=== PATIENT | female | born 1950 | race Caucasian/White ===

== ENCOUNTER 2016-06-09 07:51 | Day surgery (SDC) | payer OTHER ==
--- NOTE | ~2016-06-09 | OP ---
Record Of Operation [facility] [address] [place]. [address] NAME: JEANNIE WHEAT : 54 STATUS : REG [facility]#: [id number] AGE: 66 ADM/REG DATE : 06/09/16 MR#: [id number] REPORT SERV DATE: 06/09/16 DICTATED BY: TIFFANIE MICHEL DATE: 06/09/16 REPORT STATUS : Draft TRANSCRIBED BY: LAURA DATE: 06/09/16 DATE OF PROCEDURE: 06/09/2016 PREOPERATIVE DIAGNOSES: 1. History of left breast cancer, status post chemotherapy. 2. Indwelling right chest wall port. POSTOPERATIVE DIAGNOSIS: History of left breast cancer, status post chemotherapy. PROCEDURE: Removal of right chest wall venous port. INDICATION FOR THE PROCEDURE: Ms Wheat is a very healthy 66-year-old female, who has been treated for a left breast HER2 positive breast cancer. The patient has had her surgical intervention, radiation, and chemotherapy. The port is ready to be removed. OPERATIVE FINDINGS: After appropriate consent was noted on the chart, the patient was taken to the operating room in supine position. Her bilateral chest wall was prepped and draped in sterile fashion. Local anesthetic of 1% lidocaine plain was injected into the soft tissues and skin were the scar and port were located. The scar was opened with a #15 blade. Sharp dissection was carried down to the level of the port hub which was grasped with a hemostat, and pulled up toward the edges of the wound. The catheter was grasped with a DeBakey and pulled from the vein without problem. Catheter showed no sign of mechanical failure or shearing or tearing. The assistant production editor held pressure on the neck for five minutes while the remainder of the procedure was undertaken. Once the catheter had been removed from the vein, the two stay sutures were clipped, and the port removed. The two stay sutures were removed as well. The wound was copiously irrigated with warm saline, and hemostasis was achieved. The incision was closed in two layers of Monocryl, and the skin was cleansed and dried, and Dermabond was overlaid. The patient tolerated the procedure well. There was no bleeding in the neck prior to leaving the operating room. ESTIMATED BLOOD LOSS: Less than 10 mL. COMPLICATIONS: None. SPECIMENS: None. DEAN/LAURA Tiffanie Michel MD / [id number] CC: Record Of Operation [facility] [address] [place] [address] NAME: JEANNIE WHEAT : 54 [place] [facility] [place] [id number] AGE: 66 ADM/REG DATE : 06/09/16 MR#: [id number] REPORT SERV DATE: 06/09/16 DICTATED BY: TIFFANIE MICHEL DATE: 06/09/16 REPORT STATUS : Draft TRANSCRIBED BY: MODL DATE: 06/09/16 MD Lopez Griffin M.D.
[~2016-06-09 07:51] MED LIST: ALIGN4 MG PO; ARIMIDEX1 PO; ASAB PO; HCTZ12.5 PO; LIPITOR20 PO; MAGOX4 PO; VITC500 PO
== END 2016-06-09 11:38 | disposition home or self-care (01) ==
LOC: SDC 07:51
PROVIDERS: Surgery Surgical Oncology
PROC: 0JPT0XZ Removal of Tunneled Vascular Access Device from Trunk Subcutaneous Tissue and Fascia, Open Approach (ICD-10-PCS; principal; 2016-06-09 09:45)
DX: C50.912 Malignant neoplasm of unspecified site of left female breast (principal)
CPT/HCPCS: J0690